=== PATIENT | male | born 1950 | race Caucasian/White ===

== ENCOUNTER 2022-02-27 08:25 | Observation (INO) | payer MEDICARE, SELFPAY ==
[2022-02-27] VITALS (46 sets, daily range): BP systolic 113–131; BP diastolic 58–74; PULSE 45–76; RESP 0–22; TEMP 36.4; O2SAT 84–100
--- NOTE | ~2022-02-27 | CT_ITS ---
EXAMINATION: CT brain wo con DATE: 02/27/2022 12:59 INDICATION: Generalized paresis, weakness. Transient alteration of awareness. TECHNIQUE: Computed tomography (CT) of the head was performed without intravenous contrast. The mA wa s adjusted according to patient size. Iterative reconstruction technique was employed. Exam dose: 60 5.33 mGy-cm total exam DLP. COMPARISON: 10/12/2011 CT brain FINDINGS: Bilateral thalamic neurostimulator leads are again noted. No intracranial mass lesion or hemorrhage or cerebrovascular accident is detected. No midline shift o r mass effect effect. There is moderate cerebral volume loss. No subdural or epidural hematoma. Mild bilateral carotid siphon internal carotid artery calcification. There is nonspecific diminished attenuation of the cerebral white matter, likely due to chronic small vessel ischemic changes. The orbital regions are unremarkable. Paranasal sinuses and mastoid air cells are essentially unremarkable. No fracture or bone destruction of the cranial vault. IMPRESSION: Bilateral thalamic neurostimulator leads Cerebral atherosclerosis and chronic small vessel ischemic changes of the cerebral white matter Moderate cerebral volume loss No acute intracranial finding or significant change since 10/12/2011 Reviewed, dictated and finalized at [facility]. Reviewed, dictated and finalized at [facility]. IMPRESSION: Bilateral thalamic neurostimulator leads Cerebral atherosclerosis and chronic small vessel ischemic changes of the cereb ral white matter Moderate cerebral volume loss No acute intracranial finding or significant change since 10/12/2011
--- NOTE | ~2022-02-27 | XR_ITS ---
XR abdomen obstructive series DATE: 02/28/2022 09:04 INDICATION: Diarrhea TECHNIQUE: Supine and upright AP views COMPARISON: 03/19/2016 obstructive series FINDINGS: Right upper quadrant surgical clips, likely due to cholecystectomy. The psoas shadows are intact. No visceromegaly is evident. There is no evidence of bowel obstruction or intraperitoneal free air. IMPRESSION: Status post cholecystectomy No bowel obstruction or free air is detected Reviewed, dictated and finalized at [facility]. Reviewed, dictated and finalized at [facility].
--- NOTE | ~2022-02-27 | XR_ITS ---
XR chest 1V portable DATE: 02/27/2022 12:33 INDICATION: Weakness TECHNIQUE: Portable upright AP chest on 02/27/2022 1229 hours COMPARISON: 03/29/2016 AP and lateral chest FINDINGS: This is a limited rotated single portable AP view of the chest. Bilateral battery packs ove rlying the chest with leads extending cephalad. Heart size appears within normal range. No pulmonary infiltrate or consolidation, pleural effusion or pulmonary vascular congestion or pneumothorax is detected. 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 IMPRESSION: No active cardiopulmonary disease is detected Reviewed, dictated and finalized at location [facility].
--- NOTE | 2022-02-27 08:36 | PC.NURSE ---
Dr. Barboza at bedside to assess pt.
--- NOTE | 2022-02-27 08:39 | ED.GENADULT ---
HPI - General Adult General Chief complaint: Nausea/Vomiting/Diarrhea Stated complaint: diarrhea with weakness History of Present Illness HPI narrative: 72-year-old male with history of Parkinson's presenting to the emergency department from home for evaluation of diarrhea and increased generalized weakness. states that the patient did have onset of diarrhea and Tuesday at 1 AM. Patient states since that time he has had decreased mobility. Patient is nonverbal at baseline. states that the patient has not indicated any pain bu has shown increased generalized weakness. states patient did slip out of the bed last night but denies any signs of injury. Related Data Home Medications Medication Instructions Recorded Confirmed bimatoprost 0.01 % eye drops 1 drp EACH EYE DAILY 12/03/20 02/27/22 (Lumigan) brinzolamide 1 % eye 1 drp EACH EYE TID 12/03/20 02/27/22 drops,suspension (Azopt) carbidopa 25 mg-levodopa 100 mg 1 tablet PO TID 12/03/20 02/27/22 disintegrating tablet cyanocobalamin (vitamin B-12) 500 500 mcg PO DAILY 12/03/20 02/27/22 mcg tablet docusate sodium 100 mg capsule 100 mg PO DAILY PRN Constipation 12/03/20 02/27/22 (Stool Softener) omeprazole magnesium 20 mg 20 mg PO DAILY PRN Heartburn 12/03/20 02/27/22 tablet,delayed release (Prilosec OTC) Allergies Allergy/AdvReac Type Severity Reaction Status Date / Time Tetanus Vaccines and Toxoid AdvReac Unknown headaches Verified 02/27/22 15:13 Review of Systems Review of Systems: ROS unobtainable: Yes unobtainable due to medical condition (Patient nonverbal at baseline) [facility] Surgical History Surgical History History of knee surgery (~11/26/14) partial right knee, [place] Hx of cholecystectomy (~03/03/16) Family History Family History Mother , age 74 Patient's mother is Family history of lung cancer Father , age 42 Patient's father is Acute myocardial infarction Social History Social History (Updated 11/26/21 @ 11:44 by Azalea Encinas [facility]) Smoking status: Never smoker Alcohol intake: never Substance use: never Substance use type: does not use Spiritual care concerns: No Exam Narrative: APPEARANCE: Ill-appearing HEAD: normocephalic, atraumatic. EYES: PERRLA/EOMI, conjunctivae clear. NOSE: Normal no drainage THROAT: Pharynx clear, no exudate. NECK: Supple. No adenopathy, no masses. RESPIRATORY: Airway patent, respirations nonlabored. Clear to auscultation bilaterally, no rales, rhonchi, wheezing. CARDIOVASCULAR: Regular rate and rhythm without murmurs rubs or gallops. ABDOMINAL: Soft, nontender, nondistended, normal bowel sounds MUSCULOSKELETAL: Moves all extremities. Strength/ROM intact, No edema, No calf tenderness. NEURO: Alert. At baseline SKIN: Warm, dry. Normal Color Course Course Emergency Course: After rehydration patient still did not have increased ability to transfer. Head CT was negative. Case was discussed with the hospitalist and patient was accepted for increased generalized weakness. Vital Signs Vital signs: Vital Signs Temperature 97.6 F 02/27/22 08:18 Pulse Rate 54 L 02/27/22 08:18 Respiratory Rate 20 02/27/22 08:18 Blood Pressure 118/65 02/27/22 08:18 Pulse Oximetry 100 02/27/22 08:18 Oxygen Delivery Room Air 02/27/22 08:18 Temperature 97.6 F 02/27/22 08:18 Pulse Rate 56 L 02/27/22 16:00 Respiratory Rate 14 02/27/22 14:02 Blood Pressure 113/74 02/27/22 14:01 Pulse Oximetry 100 02/27/22 14:02 Oxygen Delivery Room Air 02/27/22 15:31 Medical Decision Making Vital Signs Vital Signs: Vital Signs Temperature 97.6 F 02/27/22 08:18 Pulse Rate 54 L 02/27/22 08:18 Respiratory Rate 20 02/27/22 08:18 Blood Pressure 118/65 02/27/22 08:18 Pulse Oximetry
[2022-02-27] MEDS: SODIUM CHLORIDE 0.9% IV 1,000 ML 999 ML IV CONT (08:46)
[2022-02-27 09:06] LABS: Hemoglobin 14.2 g/dL (14.0-18.0); Immature Platelet Fraction Pct 3.1 % (0.9-11.2); Mean Corpuscular Hemoglobin 33.2 pg (26-34); Mean Corpuscular Volume 100.5 fl (80-100); Mean Platelet Volume 10.6 fl (7.4-10.4); Platelet Count Result 118 k/mm3 (150-375); Red Blood Count 4.28 M/mm3 (4.6-6.20); Red Cell Distribution Width 12.5 % (11.5-14.5); White Blood Count 4.9 K/mm3 (4.5-10.0)
[2022-02-27 09:15] LABS: Lactic Acid Reflex 1.9 mmol/L (0.7-2.0)
[2022-02-27 09:16] LABS: Alanine Aminotransferase 12 U/L (6-50); Albumin Level 4.6 g/dL (3.5-5.1); Alkaline Phosphatase 63 U/L (38-126); Anion Gap 12 mmol/L (8-16); Aspartate Amino Transferase 47 U/L (17-59); Bilirubin,Total 1.4 mg/dL (0.2-1.3); Blood Urea Nitrogen 26 mg/dL (9-20); Carbon Dioxide 23 mmol/L (22-30); Chloride 105 mmol/L (98-107); Estimated CRCL calculation 53 ml/min; Estimated Glomerular Filt Rate 59; Glucose 113 mg/dL (65-110); Lipase 40 U/L (23-300); Potassium 4.5 mmol/L (3.4-5.0); Sodium 140 mmol/L (137-145)
[2022-02-27 09:24] LABS: Appearance Urine Clear (Clear); Bilirubin Urine 1+ (Negative); Blood Urine Negative (Negative); Color Urine Yellow (Yellow); Glucose Urine UA Negative (Negative); Ketones Urine Trace mg/dL (Negative); Leukocyte Esterase Ur Negative LEU/UL (Negative); Nitrate Urine Negative (Negative); Protein Urine 1+ mg/dL (Negative); Specific Grav Ur >= 1.030 (1.001-1.035); Urobilinogen Urine 0.2 mg/dL (<2.0)
[2022-02-27 09:30] LABS: Add Urine Microscopic? YES
[2022-02-27 09:31] LABS: Mucus Urine Few /lpf; RBC Urine 0-2 /hpf (0-2); WBC Urine 0-3 /hpf
[2022-02-27 09:32] LABS: Atypical Lymphocytes Present; Band Neutrophils Percent 22 % (0-6); Eosinophils Absolute Manual 0.29 K/mm3 (0.02-0.5); Eosinophils Percent Manual 6 % (0-4); Large Platelets Present; Lymphocytes Absolute Manual 1.22 K/mm3 (1.1-4.5); Lymphocytes Percent Manual 25 % (18-44); Metamyelocytes Percent 3 %; Monocytes Absolute Manual 0.19 K/mm3 (0.1-0.90); Monocytes Percent Manual 4 % (3-9); Neutrophils Absolute Manual 3.28 K/mm3 (1.3-6.7); Neutrophils Percent Manual 45 % (46-73); Total Cells Counted 100
[2022-02-27 09:42] LABS: SARS-CoV-2 RNA PCR Negative
--- NOTE | 2022-02-27 10:58 | PC.NURSE ---
Attempted to collect stool sample but patient only had minimal smears of stool on the depends. Not enough sample to send. MD aware. Attempted to sit patient on the side of the bed to attempt ambulation. Patient made no effort and was maximum assistance. Communicated to .
--- NOTE | 2022-02-27 12:55 | PC.NURSE ---
Patient off unit to Radiology.
--- NOTE | 2022-02-27 15:11 | ADMGEN ---
This patient, Kevin Collins, was admitted to Medical Room 256-01. Patient/family oriented to hospital policies and general routines including ID bracelet, bed and alarms, visiting hours, pain management, procedures, bathroom and other care routines, personal items, smoking policy, room service/diet, and visiting hours. Information on how to activate the Rapid Response Team has been discussed. Patient/Family are encouraged to report perceived risks to care and to ask questions if they do not understand what they are told or what they should do.
--- NOTE | 2022-02-27 15:42 | PM.IMHP ---
H&P: HPI History of Present Illness Date/Time: 02/27/22 15:42 Chief Complaint: diarrhea fatigue Narrative: ED-HPI narrative: 72-year-old male with history of Parkinson's presenting to the emergency department from home for evaluation of diarrhea and increased generalized weakness.? states that the patient did have onset of diarrhea and Tuesday at 1 AM.? Patient states since that time he has had decreased mobility.? Patient is nonverbal at baseline.? states that the patient has not indicated any pain has shown increased generalized weakness.? states patient did slip out of the bed last night but denies any signs of injury. patient is nonverbal unable to provide any review of symptom or history, patient is present states since Tuesday morning patient is having loose BM watery, no blood or mucus does smell bad, patient has not been on any antibiotics recently, no travel and no outside contact, patient states they eat same food, patient has a poor p.o. intake and appetite, patient is level of activity has decreased is more weak and fatigued. most likely patient is dehydrated, will gently hydrate the patient, will send the stool for culture, will have a PT OT evaluate the patient and further recommendation to follow. patient admitted as observation status Review of Systems Review of Systems: ROS unobtainable: Yes unobtainable due to medical condition (Patient nonverbal at baseline) [facility] Surgical History Surgical History History of knee surgery (~11/26/14) partial right knee, [place] Hx of cholecystectomy (~03/03/16) Family History Family History Mother , age 74 Patient's mother is Family history of lung cancer Father , age 42 Patient's father is Acute myocardial infarction Social History Social History (Updated 11/26/21 @ 11:44 by EDWIN Lewis) Smoking status: Never smoker Alcohol intake: never Substance use: never Substance use type: does not use Spiritual care concerns: No Meds Home Medications and Allergies Home Medications Medication Instructions Recorded Confirmed Type bimatoprost 0.01 % eye drops 1 drp EACH EYE DAILY 12/03/20 02/27/22 History (Lumigan) brinzolamide 1 % eye 1 drp EACH EYE TID 12/03/20 02/27/22 History drops,suspension (Azopt) carbidopa 25 mg-levodopa 100 mg 1 tablet PO TID 12/03/20 02/27/22 History disintegrating tablet cyanocobalamin (vitamin B-12) 500 500 mcg PO DAILY 12/03/20 02/27/22 History mcg tablet docusate sodium 100 mg capsule 100 mg PO DAILY PRN Constipation 12/03/20 02/27/22 History (Stool Softener) omeprazole magnesium 20 mg 20 mg PO DAILY PRN Heartburn 12/03/20 02/27/22 History tablet,delayed release (Prilosec OTC) ergocalciferol (vitamin D2) 1,250 50,000 unit PO WEEKLY #13 caps 06/30/21 02/27/22 Rx mcg (50,000 unit) capsule finasteride 5 mg tablet 5 mg PO DAILY #90 tabs 08/20/21 02/27/22 Rx levothyroxine 125 mcg tablet See Rx Instructions .Route 11/02/21 02/27/22 Rx .COMPLEX #90 tabs tamsulosin 0.4 mg capsule See Rx Instructions .Route 11/02/21 02/27/22 Rx .COMPLEX #180 caps Allergies Allergy/AdvReac Type Severity Reaction Status Date / Time Tetanus Vaccines and Toxoid AdvReac Unknown headaches Verified 02/27/22 15:13 Vital Signs Vital Signs - 24 hr 02/27/22 08:18 02/27/22 08:29 02/27/22 08:30 Temperature 97.6 F Pulse Rate 54 L 61 57 L Respiratory Rate 20 16 19 Blood Pressure 118/65 Pulse Oximetry 100 100 Oxygen Delivery Room Air 02/27/22 08:31 02/27/22 08:43 02/27/22 08:45 Temperature Pulse Rate 59 L 54 L 59 L Respiratory Rate 21 H 21 H 22 H Blood Pressure 118/65 113/66 Pulse Oximetry 100 100 100 Oxygen Delivery 02/27/22 08:46 02/27/22 09:00 02/27/22 09:01 Temperature Pulse
[2022-02-27] MEDS: SODIUM CHLORIDE 0.9% IV 1,000 ML 75 ML IV CONT (15:59)
[2022-02-27] MEDS: TAMSULOSIN HCL 0.4 MG CAPSULE BY MOUTH (18:35)
[2022-02-27] MEDS: CARBIDOPA/LEVODOPA 25/100 MG TABLET 1 TABLET PO (18:35)
[2022-02-27] MEDS: BRINZOLAMIDE 1% OPHTH SUSP 10 ML 1 DROP EACH EYE (18:37)
[2022-02-27] MEDS: LATANOPROST 0.005% OP SOLN 2.5 ML BTL 1 DROP EACH EYE (20:07)
[2022-02-28] VITALS (8 sets, daily range): BP systolic 101–123; BP diastolic 56–68; PULSE 52–85; RESP 18–21; TEMP 36.3–36.4; O2SAT 95–100
[2022-02-28] MEDS: LEVOTHYROXINE SODIUM 125 MCG TABLET BY MOUTH (06:01)
[2022-02-28] MEDS: SODIUM CHLORIDE 0.9% IV 1,000 ML 75 ML IV CONT (06:03)
[2022-02-28 07:28] LABS: Basophils Percent Auto 0.4 % (0.2-1.2); Eosinophils Absolute Auto 0.1 K/mm3 (0-0.3); Eosinophils Percent Auto 1.7 % (0-4.4); Hematocrit 40.3 % (42.0-52.0); Immature Granulocyte Absolute 0.01 K/mm3 (0.00-0.031); Immature Granulocyte Percent A 0.2 % (0-0.5); Immature Platelet Fraction Pct 3.1 % (0.9-11.2); Lymphocytes Absolute Auto 1.21 K/mm3 (0.9-3.2); Mean Corpuscular HGB Conc 32.3 g/dl (32-36); Mean Corpuscular Hemoglobin 32.6 pg (26-34); Mean Platelet Volume 10.7 fl (7.4-10.4); Monocytes Absolute Auto 0.6 K/mm3 (0.1-0.6); Neutrophils Absolute Auto 3.3 K/mm3 (1.3-6.7); Neutrophils Percent Auto 62.7 % (45.5-73.1); Platelet Count Result 103 k/mm3 (150-375); Red Blood Count 3.99 M/mm3 (4.6-6.20); Red Cell Distribution Width 12.6 % (11.5-14.5); White Blood Count 5.3 K/mm3 (4.5-10.0)
[2022-02-28 07:31] LABS: Anion Gap 4 mmol/L (8-16); Blood Urea Nitrogen 20 mg/dL (9-20); Calcium 8.1 mg/dL (8.4-10.2); Carbon Dioxide 24 mmol/L (22-30); Chloride 112 mmol/L (98-107); Estimated CRCL calculation 63 ml/min; Estimated Glomerular Filt Rate > 60; Glucose 94 mg/dL (65-110); Potassium 3.6 mmol/L (3.4-5.0); Sodium 140 mmol/L (137-145)
[2022-02-28] MEDS: ENOXAPARIN 40 MG/0.4 ML SYRINGE SUB-Q (09:21)
[2022-02-28] MEDS: PANTOPRAZOLE 40 MG TABLET PO (09:21)
[2022-02-28] MEDS: TAMSULOSIN HCL 0.4 MG CAPSULE BY MOUTH ×2 (09:21→16:18)
[2022-02-28] MEDS: CYANOCOBALAMIN 500 MCG TABLET PO (09:21)
[2022-02-28] MEDS: ERGOCALCIFEROL 50,000 UNIT CAPSULE 50000 UNITS PO (09:21)
[2022-02-28] MEDS: FINASTERIDE 5 MG TABLET PO (09:21)
[2022-02-28] MEDS: CARBIDOPA/LEVODOPA 25/100 MG TABLET 1 TABLET PO ×3 (09:21→16:18)
[2022-02-28] MEDS: BRINZOLAMIDE 1% OPHTH SUSP 10 ML 1 DROP EACH EYE ×2 (09:24→16:18)
--- NOTE | 2022-02-28 12:31 | PM.IMPN ---
Progress Note: A&P Assessment and Plan (1) Diarrhea in adult patient: Code(s): R19.7 - Diarrhea, unspecified Status: Acute Assessment and Plan: Diarrhea is slowing down. He is eating well. He had seen his dtr recently but no one sick at home. KUB ordered and results pending but no acute process from my read. Suspect viral gastroenteritis. Monitor stool output. Follow up on stool studies. (2) Dehydration symptoms: Code(s): R63.8 - Other symptoms and signs concerning food and fluid intake Status: Acute Assessment and Plan: [place] related to the diarrhea and poor p.o. intake. Eating better. Will stop IV fluids. (3) Generalized weakness: Code(s): R53.1 - Weakness Status: Acute Assessment and Plan: PT/OT ordered. He is improving and able to walk to the chair now. Care coordination discussed options but family wising to take patietn home. If he continues to do well physically and diarrhea able to be managed then plan discharge tomorrow. (4) Parkinsons disease: Code(s): G20 - Parkinson's disease Status: Acute Assessment and Plan: Home medications resumed. Continue PT/OT (5) Thrombocytopenia: Code(s): D69.6 - Thrombocytopenia, unspecified Status: Acute Assessment and Plan: On chart review, this appears to be chronic since at least 2014. Plan DVT prophylaxis: Lovenox Code status: Full Subjective Date/time seen: 02/28/22 12:31 Interval history: 72yo male with Parkinsons and is nonverbal here for generalized weakness and diarrhea. Patient is nonverbal and unable to provide history. Patient is eating well per RN. Diarrhea x 2 today (small volumes). Slow to get up but walked well to the chair Review of Systems Review of Systems: ROS unobtainable: Yes unobtainable due to mental status Exam Narrative: AF 97.5 123/60 82 21 100% ra Gen - NARD Chest - CTA bilaterally, nml RR CV - RRR S1/S2; Tele showing sinus arrhythmias and PVCs wih occasional bradycardia Abd - Soft, NT/ND, Positive BS Ext - No pedal edema Neuro - alert, nonverbal. masked facies. stiff gait. increased tone throughout Skin - Warm and dry Objective Data Vital Signs Vital Signs: Vital Signs - 24 hr 02/27/22 12:44 02/27/22 12:45 02/27/22 13:01 Temperature Pulse Rate 70 69 69 Respiratory Rate 21 H 15 22 H Blood Pressure Pulse Oximetry 99 100 Oxygen Delivery 02/27/22 13:15 02/27/22 13:17 02/27/22 13:30 Temperature Pulse Rate 76 75 69 Respiratory Rate 14 16 17 Blood Pressure Pulse Oximetry 84 L 91 Oxygen Delivery 02/27/22 13:49 02/27/22 14:01 02/27/22 14:02 Temperature Pulse Rate 65 65 70 Respiratory Rate 15 14 Blood Pressure 113/74 Pulse Oximetry 100 100 Oxygen Delivery 02/27/22 15:31 02/27/22 16:00 02/27/22 20:00 Temperature Pulse Rate 56 L 56 L Respiratory Rate 14 Blood Pressure Pulse Oximetry 100 Oxygen Delivery Room Air Room Air 02/27/22 20:00 02/27/22 22:00 02/28/22 00:00 Temperature 97.6 F Pulse Rate 53 L 52 L 52 L Respiratory Rate 20 Blood Pressure 129/65 Pulse Oximetry 99 Oxygen Delivery 02/28/22 04:00 02/27/22 22:50 02/28/22 06:00 Temperature 97.5 F L Pulse Rate 58 L 66 Respiratory Rate 21 H Blood Pressure 123/60 Pulse Oximetry 99 100 Oxygen Delivery Room Air 02/28/22 09:30 02/28/22 08:03 02/28/22 12:00 Temperature Pulse Rate 67 82 Respiratory Rate Blood Pressure Pulse Oximetry Oxygen Delivery Room Air Intake/Output Intake/Output: Intake & Output 02/25/22 02/26/22 02/27/22 02/28/22 23:59 23:59 23:59 23:59 Intake Total 1440 1350 Output Total 3 Balance 1440 1347 Meds/Results Medications: Active Medications Generic Name Dose Route Start Last Admin Trade Name Freq PRN Reason Stop Dose Admin Brinzolamide 1 drop 02/27/22 17:15 02/28/22 09:24 Brinzolamide 1%
[2022-02-28 13:04] LABS: Toxigenic C. Diff NEGATIVE (NEGATIVE)
--- NOTE | 2022-02-28 14:34 | PCOTNOTE ---
Attempted to evaluate pt. for occupational therapy evaluation. Pt. sat EOB and then requested to return to bed. Evaluation not able to be completed. Will follow.
[2022-02-28] MEDS: LATANOPROST 0.005% OP SOLN 2.5 ML BTL 1 DROP EACH EYE (21:27)
[2022-03-01 06:00] VITALS: BP 123/89; PULSE 70; RESP 21; TEMP 36.5; O2SAT 100
[2022-03-01] MEDS: LEVOTHYROXINE SODIUM 125 MCG TABLET BY MOUTH (06:02)
--- NOTE | 2022-03-01 07:48 | PM.DS ---
DS: Admitting Diagnosis Discharge Date 03/01/22 Admitting Diagnosis Dehydration DS: Discharge Diagnosis Discharge Diagnosis (1) Diarrhea in adult patient: Code(s): R19.7 - Diarrhea, unspecified Status: Acute Assessment and Plan: C, diff & COVID19 negative. Shiga toxin, Campylobacter and Giardia were negative. Only one small bowel movement yesterday. Cryptosporidium, salmonella/shigella culture and WBC smear from the stool were all pending at discharge. Will discharge to home today. (2) Dehydration symptoms: Code(s): R63.8 - Other symptoms and signs concerning food and fluid intake Status: Acute Assessment and Plan: Resolved. (3) Generalized weakness: Code(s): R53.1 - Weakness Status: Acute Assessment and Plan: PT/OT consulted. Patient family wanted patient to be discharged to home. (4) Parkinsons disease: Code(s): G20 - Parkinson's disease Status: Acute Assessment and Plan: Continue home medications. (5) Thrombocytopenia: Code(s): D69.6 - Thrombocytopenia, unspecified Status: Acute Assessment and Plan: Will need follow up outpatient by PCP. (6) Viral gastroenteritis: Code(s): A08.4 - Viral intestinal infection, unspecified Status: Acute Assessment and Plan: Likely caused the diarrhea and dehydration. DS: Summary Hospital Course Reason for hospitalization: Dehydration secondary to diarrhea. Hospital Course: 72M with a past medical history of Parkinson's admitted from the ED due to diarrhea causing dehydration. C. diff was negative. COVID 19 was negative. Shiga toxin, Campylobacter and Giardia were negative. Cryptosporidium, salmonella/shigella culture and WBC smear from the stool were all pending at discharge. Patient had some confusion. CT head showed no acute process. Patient had diarrhea, which resolved prior to discharge. Patient discharge with instruction to follow up with PCP within one week. Status at Discharge Cognitive/behavioral status at discharge: Time Spent with Patient Time attestation: Total time spent providing and/or coordinating discharge services: Exam Narrative: GENERAL: NAD, cooperative HEENT: Normocephalic, atraumatic, anicteric NECK: Supple CV: Normal S1, S2, RRR, No MRG RESP: CTAB, Normal work of breathing. Abdomen: Soft, non-tender, non-distended, +BS EXTREMITIES: Warm and well perfused, no clubbing, cyanosis, or edema. SKIN: warm, dry and intact. NEURO: Reported as nonverbal but clearly stated get out of his room this morning during rounds. DS: Data Data Completed and Pending Completed studies during hospitalization: Shiga toxin, Campylobacter and Giardia were negative. Cdiff and COVID 19 were negative. Pending studies at discharge: Cryptosporidium, salmonella/shigella culture and WBC smear from the stool were all pending at discharge. Labs on day of discharge: Labs from last 24 hours 02/28/22 11:34 C. difficile (PCR) Negative Imaging Radiologist's impression: ITS Impressions Chest X-Ray 02/27/22 12:39 IMPRESSION: No active cardiopulmonary disease is detected Head CT 02/27/22 13:11 IMPRESSION: Bilateral thalamic neurostimulator leads Cerebral atherosclerosis and chronic small vessel ischemic changes of the cerebral white matter Moderate cerebral volume loss No acute intracranial finding or significant change since 10/12/2011 Abdomen X-Ray 02/28/22 14:15 IMPRESSION: Status post cholecystectomy No bowel obstruction or free air is detected Discharge Plan Discharge Attending physician on discharge: Malina Mi Discharging Clinician: Malina Mi Anticipated Discharge Date/Time: 03/01/22 15:13 Patient Disposition: Home Health Service Activity: as tolerated Diet: bland Discharge Instructions: Per Care Coordination, patient to discharge with Nate Narvaez
[2022-03-01] MEDS: BRINZOLAMIDE 1% OPHTH SUSP 10 ML 1 DROP EACH EYE (09:00)
[2022-03-01] MEDS: ENOXAPARIN 40 MG/0.4 ML SYRINGE SUB-Q (09:00)
[2022-03-01] MEDS: CARBIDOPA/LEVODOPA 25/100 MG TABLET 1 TABLET PO ×2 (09:01→13:13)
[2022-03-01] MEDS: CYANOCOBALAMIN 500 MCG TABLET PO (09:01)
[2022-03-01] MEDS: TAMSULOSIN HCL 0.4 MG CAPSULE BY MOUTH (09:01)
[2022-03-01] MEDS: FINASTERIDE 5 MG TABLET PO (09:01)
[2022-03-01 14:00] VITALS: BP 110/66; PULSE 59; RESP 16; TEMP 36.5; O2SAT 99
[2022-03-01 14:14] VITALS: O2SAT 96
--- NOTE | 2022-03-01 14:55 | PCPTNOTE ---
Patient refused treatment this session due to patient just getting back to bed with nursing.
== END 2022-03-01 15:58 | disposition home health service (06) ==
LOC: ANHED 12:09 → ANH2MED 18:44
PROVIDERS: Internal Medicine; Admitting Provider Internal Medicine; Emergency Provider Emergency Medicine; PCP Family Medicine; Visit Provider Family Medicine
DX: R19.7 Diarrhea, unspecified (principal); A08.4 Viral intestinal infection, unspecified; R53.1 Weakness; G20 Parkinson's disease; R63.8 Other symptoms and signs concerning food and fluid intake; D69.6 Thrombocytopenia, unspecified; Z20.822 Contact with and (suspected) exposure to COVID-19
CPT/HCPCS: 36415; 70450; 71045; 74019; 80048; 80053; 81001; 83605; 83690; 85025; 85055; 87045; 87269; 87272; 87427; 87493; 89055; 96360; 96361; 96372; 97162; 97166; 99285; A9270; C9803; G0378; J1650; J7030; U0003; U0005

== ENCOUNTER 2022-09-30 19:07 | Emergency (ER) | payer MEDICARE, SELFPAY ==
--- NOTE | ~2022-09-30 | XR_ITS ---
EXAMINATION: XR chest 1V portable DATE: 09/30/2022 19:31 INDICATION: Cough. TECHNIQUE: A single frontal view of the chest was obtained. COMPARISON: Chest single view 02/27/2022, CT abdomen and pelvis 03/02/2016 FINDINGS: There are airspace opacities in right lower lung zone. No pleural effusion or pneumothorax. The heart size is normal. Surgical clips in the right upper quadrant are likely from cholecystectomy . There are bilateral deep brain stimulators. IMPRESSION: 1. Airspace opacities in right lower lung zone, consistent with atelectasis versus pneumonia. Reviewed, dictated and finalized at location [facility]. TER CHECKER IMPRESSION: 1. Airspace opacities in right lower lung zone, consistent with atelectasis damaris ernestina pneumonia.
--- NOTE | ~2022-09-30 | CT_ITS ---
EXAMINATION: CT abdomen pelvis w con DATE: 09/30/2022 20:17 INDICATION: Abdominal pain. TECHNIQUE: Computed tomography (CT) of the abdomen and pelvis was performed with 100 mL Omnipaque 350 intravenous contrast. Automated exposure control and iterative reconstruction technique were employe d. The dose-length product was 1256.33 mGy-cm. COMPARISON: CT abdomen and pelvis 03/02/16 FINDINGS: The visualized portions of the lung bases demonstrate mild atelectasis. A calcified left ven[place] ng nodule and calcified mediastinal lymph nodes are consistent with old granulomatous disease. No ple ural effusion. The heart size is normal. There are coronary artery calcifications. No pericardial eff usion. There are bilateral deep brain stimulators. There are cysts in the liver measuring up to 2.2 c m. Calcifications in the spleen are consistent with old granulomatous disease. There are changes of c holecystectomy. The pancreas and adrenal glands are normal. There are cysts in the kidneys measuring up to 4.8 cm on the left. There is cortical thinning of the kidneys. There is a left inguinal hernia containing fat. The prostate is moderately enlarged. There are no dilated loops of bowel. The appendi x is normal. There are no pathologically enlarged lymph nodes. There is no free intraperitoneal fluid . There is a a 14 mm nonaggressive lytic lesion with sclerotic margin in proximal right femur without change, likely benign. There is severe lumbar spondylosis. There is mild chronic anterior wedging of multiple vertebral bodies. IMPRESSION: 1. Left inguinal hernia containing fat. Reviewed, dictated and finalized at location A. R [employer]
[2022-09-30 19:08] VITALS: BP 128/52; PULSE 67; RESP 14; TEMP 36.7; O2SAT 96
--- NOTE | 2022-09-30 19:16 | ECG_ITS ---
Measurements Intervals [place] Rate: 63 P: PA: 0 QRS: 270 QRSD: 142 T: 182 QT: 380 QTc: 392 Interpretive Statements UNCERTAIN REGULAR RHYTHM (SIGNIFICANT BASELINE ARTIFACT) INTRAVENTRICULAR CONDUCTION DELAY POOR R WAVE PROGRESSION, ANTERIOR LEADS BASELINE ARTIFACT- I, II, III, AVR, AVL, AVF, V1-V6 ABNORMAL ECG NO PREVIOUS ECG AVAILABLE FOR COMPARISON Electronically Signed On 09-30-2022 20:23:06 [employer] by Costa Ann D.O.
--- NOTE | 2022-09-30 19:18 | ED.GENADULT ---
HPI - General Adult General Chief complaint: Abdominal Pain Stated complaint: abd pain Time Seen by Provider: 09/30/22 19:12 History of Present Illness HPI narrative: Patient is a 72-year-old gentleman who presents the emergency department with a chief complaint of abdominal pain. Patient has difficulty communicating secondary to Parkinson's but per EMS patient been complaining of abdominal pain throughout the day the patient has had no vomiting or diarrhea reported no fevers or chills. History is limited due to difficulty for the patient communicating Related Data Home Medications Medication Instructions Recorded Confirmed bimatoprost 0.01 % eye drops 1 drp EACH EYE DAILY 12/03/20 05/31/22 (Lumigan) brinzolamide 1 % eye 1 drp EACH EYE TID 12/03/20 05/31/22 drops,suspension (Azopt) carbidopa 25 mg-levodopa 100 mg 1 tablet PO TID 12/03/20 05/31/22 disintegrating tablet cyanocobalamin (vitamin B-12) 500 500 mcg PO DAILY 12/03/20 05/31/22 mcg tablet docusate sodium 100 mg capsule 100 mg PO DAILY PRN Constipation 12/03/20 05/31/22 (Stool Softener) omeprazole magnesium 20 mg 20 mg PO DAILY PRN Heartburn 12/03/20 05/31/22 tablet,delayed release (Prilosec OTC) Allergies Allergy/AdvReac Type Severity Reaction Status Date / Time Tetanus Vaccines and Toxoid AdvReac Unknown headaches Verified 05/31/22 14:47 Review of Systems Review of Systems: A 10 system review of systems was completed on the patient and is negative except for what is stated in the HPI. Nursing and ancillary documentation was reviewed. [facility] Past Medical History Medical History Hypothyroidism (acquired) Parkinsons disease Surgical History Surgical History History of knee surgery (~11/26/14) partial right knee, [place] Hx of cholecystectomy (~03/03/16) Family History Family History Mother , age 74 Patient's mother is Family history of lung cancer Father , age 42 Patient's father is Acute myocardial infarction Social History Social History Smoking status: Never smoker Alcohol intake: never Substance use: never Substance use type: does not use Spiritual care concerns: No Exam Narrative: GENERAL: Well-appearing, well-nourished, and in no acute distress. HEAD: Normocephalic, atraumatic. EYES: PERRLA and EOMI. ENT: Nares clear, no rhinorrhea or epistaxis. Mucous membranes moist. NECK: Supple. CHEST: Clear to auscultation. No respiratory distress. HEART: Regular rate and rhythm. No murmur heard. Normal peripheral pulses. ABDOMEN: Soft, diffuse mild tenderness, nondistended, normal active bowel sounds. EXTREMITIES: Normal range of motion. No edema. SKIN: Warm, dry, no rash. NEURO: No focal deficits. Alert and oriented x3. Speech is very slow able to say some words this is apparently the patient's baseline PSYCH: Normal mood and affect. Course Vital Signs Vital signs: Vital Signs Temperature 36.7 C 09/30/22 19:08 Pulse Rate 67 09/30/22 19:08 Respiratory Rate 14 09/30/22 19:08 Blood Pressure 128/52 L 09/30/22 19:08 Pulse Oximetry 96 09/30/22 19:08 Oxygen Delivery Room Air 09/30/22 19:08 Temperature 36.7 C 09/30/22 19:08 Pulse Rate 67 09/30/22 19:08 Respiratory Rate 14 09/30/22 19:08 Blood Pressure 128/52 L 09/30/22 19:08 Pulse Oximetry 96 09/30/22 19:08 Oxygen Delivery Room Air 09/30/22 19:08 Medical Decision Making MDM Narrative Medical decision making narrative: Due to the patient not able to provide much history laboratory studies were obtained which showed no evidence of acute abnormality. Urinalysis showed no evidence of UTI chest x-ray showed atelectasis versus infi
[2022-09-30] MEDS: MORPHINE SULFATE (*CRX) 4 MG/ML INJ 2 MG IV PUSH (19:34)
[2022-09-30] MEDS: ONDANSETRON INJ 4 MG/2 ML VIAL IV PUSH (19:34)
[2022-09-30] MEDS: SODIUM CHLORIDE 0.9% IV 1,000 ML 999 ML IV CONT (19:35)
[2022-09-30 19:43] LABS: Basophils Percent Auto 0.6 % (0.2-1.2); Eosinophils Absolute Auto 0.1 K/mm3 (0-0.3); Eosinophils Percent Auto 1.3 % (0-4.4); Hematocrit 40.4 % (42.0-52.0); Hemoglobin 13.7 g/dL (14.0-18.0); Immature Granulocyte Absolute 0.01 K/mm3 (0.00-0.031); Immature Granulocyte Percent A 0.2 % (0-0.5); Lymphocytes Absolute Auto 1.27 K/mm3 (0.9-3.2); Lymphocytes Percent Auto 23.7 % (18.3-44.2); Mean Corpuscular HGB Conc 33.9 g/dl (32-36); Mean Corpuscular Hemoglobin 33.6 pg (26-34); Mean Platelet Volume 10.7 fl (7.4-10.4); Monocytes Absolute Auto 0.4 K/mm3 (0.1-0.6); Monocytes Percent Auto 8.2 % (2.6-8.5); Neutrophils Absolute Auto 3.5 K/mm3 (1.3-6.7); Platelet Count Result 128 k/mm3 (150-375); Red Blood Count 4.08 M/mm3 (4.6-6.20); White Blood Count 5.4 K/mm3 (4.5-10.0)
[2022-09-30 19:55] LABS: Alanine Aminotransferase 20 U/L (6-50); Albumin Level 4.5 g/dL (3.5-5.1); Alkaline Phosphatase 62 U/L (38-126); Anion Gap 5 mmol/L (8-16); Aspartate Amino Transferase 28 U/L (17-59); Bilirubin,Total 0.6 mg/dL (0.2-1.3); Blood Urea Nitrogen 25 mg/dL (9-20); Calcium 9.2 mg/dL (8.4-10.2); Carbon Dioxide 30 mmol/L (22-30); Chloride 104 mmol/L (98-107); Estimated CRCL calculation 51 ml/min; Estimated Glomerular Filt Rate 59; Glucose 107 mg/dL (65-110); Lipase 70 U/L (23-300); Sodium 139 mmol/L (137-145)
[2022-09-30 19:57] LABS: Lactic Acid Reflex 1.4 mmol/L (0.7-2.0)
[2022-09-30 20:07] LABS: Troponin I < 0.012 ng/mL (0.000-0.034)
[2022-09-30 21:03] LABS: Add Urine Microscopic? NO; Appearance Urine Clear (Clear); Bilirubin Urine Negative (Negative); Blood Urine Negative (Negative); Color Urine Yellow (Yellow); Glucose Urine UA Negative (Negative); Ketones Urine Negative (Negative); Leukocyte Esterase Ur Negative LEU/UL (Negative); Nitrate Urine Negative (Negative); Protein Urine Negative (Negative); Urobilinogen Urine 0.2 mg/dL (<2.0); pH Urine 5.5 (5.0-9.0)
[2022-09-30 21:15] VITALS: BP 170/86; PULSE 79; RESP 16; O2SAT 99
[2022-09-30 23:00] VITALS: BP 157/77; PULSE 72; RESP 23; O2SAT 100
== END 2022-09-30 23:41 | disposition home or self-care (01) ==
PROVIDERS: Emergency Provider Emergency Medicine; PCP Family Medicine
DX: R10.84 Generalized abdominal pain (principal); R05.9 Cough, unspecified; G20 Parkinson's disease; E03.9 Hypothyroidism, unspecified
CPT/HCPCS: 36415; 71045; 74177; 80053; 81003; 83605; 83690; 84484; 85025; 85055; 93005; 96361; 96374; 96375; 99284; J2270; J2405; J7030; Q9967